=== PATIENT | female | born 1955 | race American Indian/Alaskan Native ===

== ENCOUNTER 2017-07-31 05:46 | Day surgery (SDC) | payer OTHER ==
[2017-07-23 11:17] VITALS: BMI 30.2
[2017-07-31] MEDS ORDERED: Flurbiprofen 0.03% Opht SOLN OD SCH (06:00)
[2017-07-31] MEDS ORDERED: Lactated Ringer's 500 ML IV ONE (06:00)
[2017-07-31] MEDS ORDERED: Ciprofloxacin 0.3% OPTH SOLN OD SCH (06:00)
[2017-07-31] MEDS ORDERED: Phenylephrine 2.5% Opht Soln OD SCH (06:00)
[2017-07-31] MEDS ORDERED: Tropicamide 1% Opht SOLUTION OD SCH (06:00)
[2017-07-31] MEDS ORDERED: Cyclopentolate 1% Opth (2 ml) OD SCH (06:00)
[2017-07-31] MEDS ORDERED: Lactated Ringer's 1,000 ML IV ONE (06:30)
[2017-07-31] MEDS: Tetracaine 0.5% Ophth (OR ONLY) ONE ×2 (08:02→08:26)
[2017-07-31] MEDS: Povidone Iodine Ophthalmic 5% Soln ONE ×2 (08:02→08:26)
[2017-07-31] MEDS: Hyaluronidase Human, Recombi 150 U/ML VIAL ONE ×2 (08:03→08:30)
[2017-07-31] MEDS: Lidocaine 2% Inj (20ml) ONE ×2 (08:03→08:30)
[2017-07-31] MEDS: Chondroitin/Hyaluronate Opth Syringe KIT (0.55 ml-0.5 ml) IO ONE ×2 (08:04→08:42)
[2017-07-31] MEDS: Carbachol 0.01% IO ONE ×2 (08:04→08:45)
[2017-07-31] MEDS: Tobramycin/Dexamethasone OPHT OINT ONE ×2 (08:05→08:44)
[2017-07-31] MEDS ORDERED: Midazolam 2 MG/2 ML VIAL ONE (08:20)
[2017-07-31 09:45] VITALS: BP 120/61; PULSE 60; RESP 20; TEMP 98.3; O2SAT 98
--- NOTE | 2017-07-31 17:38 | OP ---
PROCEDURE DATE: 07/31/2017 PREOPERATIVE DIAGNOSIS: Cataract, right eye. POSTOPERATIVE DIAGNOSIS: Cataract, right eye. OPERATIVE PROCEDURE: Phacoemulsification, right eye, insertion of posterior chamber lens implant. SURGEON: Karthikeyan Arcos MD. TYPE OF ANESTHESIA: Local intravenous sedation. DESCRIPTION OF PROCEDURE: The patient was brought into the operating room, placed in supine position, prepped and draped in the usual fashion for ophthalmic surgery. Lid speculum was inserted, lids and exposing globe. A side-port incision was made superiorly and inferiorly with a disposable sharp blade. Anterior chamber was filled with Viscoat. A near clear corneal incision was made temporally with a 2.75-mm keratome. Capsulorrhexis was then performed with Utrata forceps. Hydrodissection carried out with balanced salt solution. Nucleus was phacoemulsified. Remaining cortical fragments were removed with a split irrigation and aspiration system. The capsular sac was filled with Provisc. A posterior chamber lens was then injected into the capsular sac and rotated into horizontal position. Provisc was aspirated out of the anterior chamber. The pupil was constricted with Miochol. The wound was found to be watertight. Topical Betadine, Timoptic, and TobraDex ointment and pressure patch were applied. The patient tolerated the procedure well. Karthikeyan Arcos MD
== END 2017-07-31 11:15 | disposition home or self-care (01) ==
LOC: C.SDS 05:46
PROVIDERS: ATTEND Ophthalmology
DX: H26.9 Unspecified cataract (principal)
CPT/HCPCS: 66984; J2250; J3010; J3470; J7120

== ENCOUNTER 2017-09-18 05:41 | Day surgery (SDC) | payer OTHER ==
[2017-08-13 09:27] VITALS: BMI 30.1
[2017-09-18] MEDS ORDERED: Flurbiprofen 0.03% Opht SOLN OS SCH (06:00)
[2017-09-18] MEDS ORDERED: Phenylephrine 2.5% Opht Soln OS SCH (06:00)
[2017-09-18] MEDS ORDERED: Ciprofloxacin 0.3% OPTH SOLN OS SCH (06:00)
[2017-09-18] MEDS ORDERED: Lactated Ringer's 500 ML IV ONE (06:00)
[2017-09-18] MEDS ORDERED: Tropicamide 1% Opht SOLUTION OS SCH (06:00)
[2017-09-18] MEDS ORDERED: Cyclopentolate 1% Opth (2 ml) OS SCH (06:00)
[2017-09-18] MEDS ORDERED: Lactated Ringer's 1,000 ML IV ONE (06:23)
[2017-09-18] MEDS ORDERED: Hyaluronidase Human, Recombi 150 U/ML VIAL ONE (07:23)
[2017-09-18] MEDS ORDERED: Chondroitin/Hyaluronate Opth Syringe KIT (0.55 ml-0.5 ml) IO ONE ×2 (07:29→08:08)
[2017-09-18] MEDS ORDERED: Tetracaine 0.5% Ophth (OR ONLY) ONE (07:29)
[2017-09-18] MEDS ORDERED: Povidone Iodine Ophthalmic 5% Soln ONE (07:32)
[2017-09-18] MEDS ORDERED: Carbachol 0.01% IO ONE (07:33)
[2017-09-18] MEDS ORDERED: Lidocaine 2% Inj (20ml) ONE (07:35)
[2017-09-18] MEDS ORDERED: Midazolam 2 MG/2 ML VIAL ONE (08:02)
--- NOTE | 2017-09-18 12:21 | OP ---
PROCEDURE DATE: 09/18/2017. PREOPERATIVE DIAGNOSIS: Cataract, left eye. POSTOPERATIVE DIAGNOSIS: Cataract, left eye. OPERATIVE PROCEDURE: Phacoemulsification, left eye, insertion of posterior chamber implant. SURGEON: Dr. Arcos. ANESTHESIA TYPE: Local IV sedation. PROCEDURE: The patient was brought into the operating room, placed in supine position, prepped and draped in the usual fashion for ophthalmic surgery. Lid speculum was inserted, lids and exposing globe. A side-port incision was made superiorly and inferiorly with a disposable sharp blade. Anterior chamber was filled with Viscoat. A near clear corneal incision was made temporally with a 2.75-mm keratome. Capsulorrhexis was then performed with Utrata forceps. Hydrodissection carried out with balanced salt solution. Nucleus was phacoemulsified. Remaining cortical fragments were removed with a split irrigation and aspiration system. The capsular sac was filled with Provisc. A posterior chamber lens was then injected into the capsular sac and rotated into horizontal position. Provisc was aspirated out of the anterior chamber. The pupil was constricted with Miochol. The wound was found to be watertight. Topical Betadine, Timoptic, and TobraDex ointment and pressure patch were applied. The patient tolerated the procedure well. Karthikeyan Arcos MD
[2017-09-18 12:34] VITALS: BP 128/62; PULSE 72; RESP 16; TEMP 98.1; O2SAT 97
== END 2017-09-18 10:50 | disposition home or self-care (01) ==
LOC: C.SDS 05:41
PROVIDERS: ATTEND Ophthalmology
DX: H26.9 Unspecified cataract (principal)
CPT/HCPCS: 66984; J2250; J3010; J3470; J7120; V2632